=== PATIENT | male | born 1980 | race Two or more races ===

== ENCOUNTER 2017-07-27 11:30 | Emergency (ER) | payer SELFPAY ==
[~2017-07-27] VITALS: Ht 185.4 cm; Wt 97.5 kg
[2017-07-27 12:45] VITALS: BP 136/79
== END 2017-07-27 13:45 | disposition home or self-care (01) ==
LOC: ER 11:30
DX: S61.211A Laceration without foreign body of left index finger without damage to nail, initial encounter (principal); F17.210 Nicotine dependence, cigarettes, uncomplicated; W45.8XXA Other foreign body or object entering through skin, initial encounter; Y93.89 Activity, other specified; Y92.89 Other specified places as the place of occurrence of the external cause; Y99.8 Other external cause status
CPT/HCPCS: 12001

== ENCOUNTER 2020-10-11 15:34 | Emergency (ER) | payer MEDICAID ==
[~2020-10-11] VITALS: Ht 185.4 cm; Wt 104.3 kg
[2020-10-11 15:39] VITALS: BP 142/71
[2020-10-11 16:48] LABS: Basophils # (auto) 0 10 ^3/uL (0-0.2); Basophils % (auto) 0.4 % (0.0-2.0); Eosinophils # (auto) 0 10 ^3/uL (0-0.8); Eosinophils % (auto) 0.4 % (0.0-7.0); Hematocrit 44.8 % (41.0-53.0); Hemoglobin 15.7 g/dL (13.5-17.5); Lymphocytes # (auto) 1.5 10 ^3/uL (0.4-5.4); Lymphocytes % (auto) 20.3 % (10.0-50.0); Mean Corpuscular Hemoglobin 31.8 pg (28.0-32.0); Mean Corpuscular Hgb Conc. 35.1 g/dL (32.0-36.0); Mean Corpuscular Volume 90.5 fL (80.0-100.0); Monocytes # (auto) 0.8 10 ^3/uL (0-1.3); Monocytes % (auto) 10.7 % (0.0-12.0); Neutrophils # (auto) 5.1 10 ^3/uL (1.6-8.6); Neutrophils % (auto) 68.2 % (37.0-80.0); Platelet Count (auto) 241 10^3/uL (140-450); Red Blood Cells 4.94 10^6/uL (4.5-5.90); Red Cell Distribution Width 12.8 % (11.8-14.3); White Blood Cell 7.5 10^3/uL (4.4-10.8)
[2020-10-11 17:07] LABS: Albumin 4.2 g/dL (3.4-5.0); Anion Gap 6 (5-15); BUN/Creatinine Ratio 11.2; Blood Urea Nitrogen 12 mg/dL (7-18); Calcium 8.9 mg/dL (8.5-10.1); Carbon Dioxide 28 mmol/L (21-32); Chloride 105 mmol/L (98-107); GFR African American 99 mL/min; GFR Non-African American 82 mL/min; Glucose 83 mg/dL (74-106); Lipase 129 U/L (73-393); Potassium 3.6 mmol/L (3.5-5.1); Sodium 139 mmol/L (136-145)
[2020-10-11 17:20] LABS: Alanine Aminotransferase 30 U/L (16-61); Alkaline Phosphatase 56 U/L (45-117); Aspartate Aminotransferase 21 U/L (15-37); Bilirubin, Total 0.5 mg/dL (0.2-1.0); Total Protein 8.1 g/dL (6.4-8.2)
== END 2020-10-11 17:27 | disposition home or self-care (01) ==
LOC: ER 15:34
DX: R07.89 Other chest pain (principal); K29.00 Acute gastritis without bleeding
CPT/HCPCS: 36415; 71046; 76705; 80053; 83690; 84484; 85025; 93005

== ENCOUNTER 2021-12-27 13:57 | Emergency (ER) | payer MEDICAID ==
[~2021-12-27] VITALS: Ht 185.4 cm; Wt 113.6 kg
[2021-12-27 15:05] VITALS: BP 132/88
[2021-12-28] MEDS ORDERED: CEPH-509 PO (10:37)
== END 2021-12-27 16:21 | disposition left against medical advice (07) ==
LOC: ER 13:57
DX: S61.411A Laceration without foreign body of right hand, initial encounter (principal); S80.12XA Contusion of left lower leg, initial encounter; Z53.21 Procedure and treatment not carried out due to patient leaving prior to being seen by health care provider; W18.39XA Other fall on same level, initial encounter; Y93.89 Activity, other specified; Y92.89 Other specified places as the place of occurrence of the external cause; Y99.8 Other external cause status
CPT/HCPCS: 73130

== ENCOUNTER 2021-12-28 09:47 | Emergency (ER) | payer MEDICAID ==
[~2021-12-28] VITALS: Ht 185.4 cm; Wt 113.4 kg
[2021-12-28 10:35] VITALS: BP 133/87
[2021-12-28] MEDS ORDERED: CEPH-509 PO (10:37)
== END 2021-12-28 10:38 | disposition home or self-care (01) ==
LOC: ER 09:47
DX: S61.411A Laceration without foreign body of right hand, initial encounter (principal); F12.10 Cannabis abuse, uncomplicated; W26.8XXA Contact with other sharp object(s), not elsewhere classified, initial encounter; Y93.89 Activity, other specified; Y92.89 Other specified places as the place of occurrence of the external cause; Y99.8 Other external cause status

== ENCOUNTER 2022-04-17 15:40 | Emergency (ER) | payer MEDICAID ==
[~2022-04-17] VITALS: Ht 182.9 cm; Wt 110.9 kg
[~2022-04-17 15:40] MED LIST: CEPH-509 PO
[2022-04-17 17:50] VITALS: BP 132/67
[2022-04-17] MEDS ORDERED: CEPH-510 PO (18:42)
== END 2022-04-17 18:53 | disposition home or self-care (01) ==
LOC: ER 15:40
DX: S61.411A Laceration without foreign body of right hand, initial encounter (principal); Z79.899 Other long term (current) drug therapy; W26.8XXA Contact with other sharp object(s), not elsewhere classified, initial encounter; Y93.89 Activity, other specified; Y92.89 Other specified places as the place of occurrence of the external cause; Y99.8 Other external cause status
CPT/HCPCS: 12001; 99283; J2001

== ENCOUNTER 2023-03-21 13:20 | Emergency (ER) | payer MEDICAID ==
[~2023-03-21] VITALS: Ht 185.4 cm; Wt 110.0 kg
[~2023-03-21 13:20] MED LIST changes: +CEPH-510 PO
[2023-03-21 13:28] VITALS: BP 149/77; PULSE 77; RESP 18; O2SAT 97
[2023-03-21 14:14] LABS: Urine Bacteria NONE SEEN /hpf (None Seen); Urine Blood Negative /uL (Negative); Urine Clarity Clear (Clear); Urine Protein, UAD Negative (Negative); Urine Specific Gravity 1.004 (1.001-1.035); Urine Urobilinogen Normal (Negative); Urine WBC <1 /hpf (0 - 3); Urine pH 5.5 (5.0-8.0)
[2023-03-21 14:17] LABS: Urine Color Straw (Yellow)
== END 2023-03-21 15:07 | disposition left against medical advice (07) ==
LOC: ER 13:20 → EDBD 13:20 → ER 15:07
DX: R31.9 Hematuria, unspecified (principal); Z53.21 Procedure and treatment not carried out due to patient leaving prior to being seen by health care provider
CPT/HCPCS: 81001

== ENCOUNTER 2023-04-29 21:40 | Emergency (ER) | payer MEDICAID ==
[~2023-04-29] VITALS: Ht 185.4 cm; Wt 81.8 kg
[2023-04-29 21:46] VITALS: BP 108/72; PULSE 90; RESP 18; O2SAT 91
[2023-04-29 22:16] LABS: Basophils # (auto) 0 10 ^3/uL (0-0.2); Basophils % (auto) 0.7 % (0.0-2.0); Eosinophils # (auto) 0.5 10 ^3/uL (0-0.8); Eosinophils % (auto) 8.2 % (0.0-7.0); Hematocrit 41.7 % (41.0-53.0); Hemoglobin 14.3 g/dL (13.5-17.5); Lymphocytes # (auto) 1.7 10 ^3/uL (0.4-5.4); Lymphocytes % (auto) 25.4 % (10.0-50.0); Mean Corpuscular Hemoglobin 31.8 pg (28.0-32.0); Mean Corpuscular Hgb Conc. 34.4 g/dL (32.0-36.0); Mean Corpuscular Volume 92.5 fL (80.0-100.0); Monocytes # (auto) 0.5 10 ^3/uL (0-1.3); Monocytes % (auto) 7.5 % (0.0-12.0); Neutrophils # (auto) 3.9 10 ^3/uL (1.6-8.6); Neutrophils % (auto) 58.2 % (37.0-80.0); Nucleated Red Blood Cells % 0.1 %; Red Blood Cells 4.51 10^6/uL (4.5-5.90); Red Cell Distribution Width 13.8 % (11.8-14.3); White Blood Cell 6.6 10^3/uL (4.4-10.8)
[2023-04-29 22:32] LABS: Alanine Aminotransferase 45 U/L (7-40); Albumin 4.3 g/dL (3.2-4.8); Alkaline Phosphatase 74 U/L (46-116); Anion Gap 8 (5-15); Aspartate Aminotransferase 20 U/L (13-40); Bilirubin, Total 0.2 mg/dL (0.2-1.0); Blood Alcohol 293.4 mg/dL (<10); Blood Urea Nitrogen 9 mg/dL (9-23); Calcium 8.7 mg/dL (8.7-10.4); Carbon Dioxide 23 mmol/L (20-30); Chloride 108 mmol/L (98-107); Glucose 155 mg/dL (74-106); Magnesium 1.9 mg/dL (1.6-2.6); Potassium 3.7 mmol/L (3.5-5.1); Sodium 139 mmol/L (136-145); Total Protein 7.4 g/dL (5.7-8.2)
[2023-04-29 22:33] LABS: Acetaminophen < 2.0 UG/ML (10.0-20.0)
[2023-04-29 22:35] LABS: Salicylate < 3.0 mg/dL (2.8-20.0)
[2023-04-30] MEDS ORDERED: SODIUM CHLORIDE 0.9% 1,000 ML IV ONE (01:15)
== END 2023-04-30 06:39 | disposition home or self-care (01) ==
LOC: EDBD 21:40 → ER 21:40
DX: F10.129 Alcohol abuse with intoxication, unspecified (principal); Z79.899 Other long term (current) drug therapy; Y90.0 Blood alcohol level of less than 20 mg/100 ml
CPT/HCPCS: 36415; 70450; 80053; 80320; 80329; 83735; 85025; 96360; 99284; J7030